=== PATIENT | female | born 1985 | race African-American/Black ===

== ENCOUNTER 2023-07-05 21:31 | Emergency (ER) | payer MEDICAID, OTHER ==
[~2023-07-05] VITALS: Ht 157.5 cm; Wt 70.0 kg
[~2023-07-05 21:31] MED LIST: PRENATAL VITS
[2023-07-05 22:39] VITALS: O2SAT 99
[2023-07-05 23:24] VITALS: BP 127/73; PULSE 93; RESP 18
[2023-07-05 23:26] LABS: CLARITY URINE CLEAR (CLEAR); COLOR URINE YELLOW (YELLOW); GLUCOSE URINE NEGATIVE (NEGATIVE); KETONES URINE TRACE (NEGATIVE); LEUKOCYTE ESTERASE URINE NEGATIVE (NEGATIVE); NITRITE URINE NEGATIVE (NEGATIVE); OCCULT BLOOD URINE NEGATIVE (NEGATIVE); PROTEIN URINE TRACE (NEGATIVE); SPECIFIC GRAVITY URINE 1.031 (1.005-1.030)
[2023-07-05] MEDS: DEXAMETHASONE 10 MG/ML VIAL IM ONE (23:52)
[2023-07-05] MEDS: DIPHENHYDRAMINE 50MG/ML VIAL IM ONE (23:53)
[2023-07-05] MEDS: FAMOTIDINE 20MG TABLET PO ONE (23:53)
[2023-07-06 00:04] LABS: RBC URINE NONE SEEN /hpf (0-2); WBC URINE NONE SEEN /hpf (0-2)
[2023-07-06 00:05] LABS: BACTERIA URINE TRACE; SQUAMOUS EPITHELIAL CELL URINE FEW /lpf (RARE/1+)
[2023-07-06 00:10] VITALS: TEMP 98.5
[2023-07-06] MEDS ORDERED: FAMO40TA7 MT (00:28)
[2023-07-06] MEDS ORDERED: DIPH25CA83 PO (00:28)
== END 2023-07-06 00:49 | disposition home or self-care (01) ==
LOC: ER 21:31
DX: L50.9 Urticaria, unspecified (principal); Z32.01 Encounter for pregnancy test, result positive
CPT/HCPCS: 99284; 71045; 81003; 81025; 96372; J1100; J1200